=== PATIENT | female | born 1985 | race American Indian/Alaskan Native ===

== ENCOUNTER 2023-03-10 09:10 | Observation (INO) | payer OTHER ==
[~2023-03-10] VITALS: Ht 165.1 cm; Wt 106.6 kg
--- OUTSIDE RECORDS SUMMARY | ~2023-03-10 | XMS | Continuity of Care Document ---
Demographics + + + | Address | [address] | | | [place] [address] | + + + | Preferred Language | Unknown | + + + | Marital Status | Never | + + + | Protestant Affiliation | Unknown | + + + | Race | or | + + + | Ethnic Group | Unknown | + + + Author + + + | Author | [facility] | + + + | Organization | [facility] | + + + | Address | [address] [facility] | | | [place] [address] | + + + | Phone | | + + + Care Team Providers + + + + | Care Fire Loss Prevention Engineer Name | Role | Phone | + + + + Unavailable | Unavailable | + + + + Allergies and Intolerances + + + + + + | date | description | facility | reaction | severity | + + + + + + | (no date) | hydrocodone | [facility] | (no reaction) | (no severity) | + + + + + + Encounters No information. Functional Status No information. Immunizations No information. Medications No information. Problems + + + + | date | description | facility | + + + + | 2023-02-03 14:56 | UNSPECIFIED ASTHMA, | [facility] | | | UNCOMPLICATED | | + + + + Procedures No information. Results/Labs No information. Social History No information. Vital Signs No information."
--- OUTSIDE RECORDS SUMMARY | ~2023-03-10 | XMS | Continuity of Care Document ---
Demographics + + + | Address | [address] | | | [place] [address] | + + + | Preferred Language | Unknown | + + + | Marital Status | Never | + + + | Mosque Affiliation | Unknown | + + + | Race | or | + + + | Ethnic Group | Unknown | + + + Author + + + | Author | [facility] | + + + | Organization | [facility] | + + + | Address | [address] [facility] | | | [place] [address] | + + + | Phone | | + + + Care Team Providers + + + + | Care Customer Service Representative Teacher Name | Role | Phone | + [...]
[~2023-03-10 09:10] MED LIST: DOXYCYCLINE HY100 MG PO; GUAIFENESIN AC473 ML PO; PROAIR RESPICL90 MCG IH
[2023-03-10] MEDS ORDERED: BUDESONIDE-FO10.2 GM INH (09:28)
[2023-03-10 09:37] LABS: BASOPHILS 0.3 % (0-2); EOSINOPHILS 0.9 % (0-6); HEMATOCRIT 40.8 % (35.0-50.0); HEMOGLOBIN 14.1 g/dL (12.0-18.0); LYMPHOCYTES 8.7 % (24-44); MCHC 34.5 g/dl (30-36); MONOCYTES 6.4 % (0-12); NEUTROPHILS 83.7 % (39-80); PLATELET COUNT 400 K/uL (140-440); RBC 5.03 M/ul (4.3-5.7); RDW 14.4 (10.5-15.0)
[2023-03-10 09:52] LABS: ALBUMIN/GLOBULIN RATIO 0.89 (1.1-2.4); ANION GAP 15.3 (7-21); BILIRUBIN, TOTAL 1.7 ng/dL (0.2-1.0); CREATININE, SERUM 0.7 mg/dL (0.55-1.02); POTASSIUM 4.3 mmol/L (3.5-5.1); PROTEIN, TOTAL 8.5 g/dL (6.4-8.2)
[2023-03-10 11:37] LABS: BILIRUBIN, URINE NEGATIVE (negative); BLOOD/HGB, URINE NEGATIVE (Negative); KETONE, URINE NEGATIVE (Negative); LEUK ESTERASE, URINE NEGATIVE (negative); NITRITE, URINE NEGATIVE (negative); PH, URINE 5.5 (5-7)
--- NOTE | 2023-03-10 12:56 | NUR ---
THIS RN DOWN TO ER TO BRING PT UP TO MED/SURG. BEDSIDE REPORT RECEIVED FROM SHELLY PANDYA. 2RN SKIN ASSESSMENT COMPLETE. 1307 IN MED/SURG ROOM. SHELLY VÁSQUEZ IN TO ASSIST WITH ADMISSION. VITALS COMPLETE. IV FLUSHES WNL. IV FLUIDS STARTED, SEE MAR. ASSESSMENT COMPLETE. LUNG SOUNDS CLEAR. BOWEL TONES ACTIVE. PT REPORTING PAIN/TENDERNESS IN RUQ WITH PALPATION. PT REPORTING PAIN 4/10 IN ABD. PRN PAIN MEDICATION ADMINISTERED, SEE MAR. ASSISTED PT WITH CALLING . PT DENIES ANY NEEDS AT THIS TIME. EDUCATED PT TRUST MANAGER ASSISTANT LIGHT USE AND TO CALL WHEN PT NEEDS TO GET OUT OF BED. PT VERBALIZES UNDERSTANDING.
[2023-03-10 13:09] VITALS: BP 123/64
--- NOTE | 2023-03-10 13:31 | NUR ---
CALLED DR. BANDA REGARDING PT FEELING NAUSEOUS. PER DR. BANDA ZOFRAN 4MG IV Q6 PRN. VERIFIDED WITH READBACK.
--- NOTE | 2023-03-10 13:47 | NUR ---
IN TO ROUND ON PT. PT DENIES NAUSEA AT THIS TIME. PT DENIES ANY OTHER NEEDS. CALL LIGHT IN REACH.
--- NOTE | 2023-03-10 14:50 | NUR ---
IN TO ROUND ON PT. PT STATES "IT IS HOT, AND I AM NAUSEOUS." PRN NAUSEA MEDICATION ADMINISTERED, SEE MAR. COOL RAG PROVIDED. EMESIS NOTED. PT REPORTING PAIN 08/14. PT DENIES PRN PAIN MEDICATION WHEN OFFERED. PT DENIES ANY OTHER NEEDS AT THIS TIME. CALL LIGHT IN REACH.
--- NOTE | 2023-03-10 15:39 | NUR ---
IN TO ANSWER CALL LIGHT. IV PUMP ALARMING, RESOLVED. PT DENIES ANY OTHER NEEDS AT THIS TIME. CALL LIGHT IN REACH.
--- NOTE | 2023-03-10 15:45 | NUR ---
IN TO GET CONSENT FORM SIGNED. PT DENIES QUESTIONS. PT ENCOURAGED TO ASK QUESTIONS IF PT DOES HAVE ANY. CONSENT FORM SIGNED. WILLIAM SR IN TO ASSIST PT WITH WIPE DOWN. NO OTHER NEEDS FROM THIS RN AT THIS TIME.
--- NOTE | 2023-03-10 16:00 | NUR ---
Spoke with pt. She initally was retching. she denies needs for me to call nurse. States she was just medicated. Pt having symptoms for last 4 days. She lives in a house with her children and . Few steps. NO issues getting in or out of the home. 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 She states spouse and children will help her as needed. She denies any needs. She works at [employer]. Plans to go home on dc with family. No issues for finances at this time.
--- NOTE | 2023-03-10 16:10 | NUR ---
IN TO ADMINISTER MEDICATION, SEE MAR. PT REQUESTING TO USE RESTROOM. SBA FROM BED TO RESTOOM. PT TAKES CONTACTS OUT. CONTACT CASE PROVIDED. PT AMBULATES BACK TO BED. SCDs IN PLACE. PT DENIES ANY OTHER NEEDS AT THIS TIME. CALL LIGHT IN REACH.
--- NOTE | 2023-03-10 16:20 | NUR ---
PATIENT WASHED HER FACE AND DID HER PERICARE. I HELPED HER DO HER SURIGAL WIPE DOWN. PUT SOCKS ON AND SCDS.
--- NOTE | 2023-03-10 17:12 | NUR ---
IN TO ROUND ON PT. PT LAYING IN BED AND ADDRESSES THIS RN WHEN ENTERING ROOM. PT REPORTING PAIN 2/10 IN RUQ. PT DENIES PRN PAIN MEDICATION WHEN OFFERED. PT DENIES NAUSEA AT THIS TIME. PT DENIES ANY OTHER NEEDS AT THIS TIME. CALL LIGHT IN REACH.
--- NOTE | 2023-03-10 17:26 | NUR ---
SURGERY HERE TO TAKE PT DOWN FOR PROCEDURE.
--- NOTE | 2023-03-10 20:41 | NUR ---
03/10/232040 Joi Serna 2019: PT ARRIVES TO PACU WITH EYES CLOSED ON 10L O2 VIA MASK, CHIN SUPPORT NEEDED. PT DOES NOT AROUSE WITH PAINFUL STIMULI. Mer KAY RN SECOND. Bambi MENDOZA CRNA AT BEDSIDE. 2029: PT FOGS MASK NICELY AND PT ABLE TO STATE NAME WITH VERBAL STIMULI. O2 REMOVED AT THIS TIME, PT ABLE TO MAINTAIN SATS GREATER THAN 90% ON RA. 2039: PT O2 DECREASES TO 88% AND 3L VIA NC PLACED, PT ABLE TO MAINTAIN SATS 94%. DR. BANDA IN PACU AT THIS TIME.
[2023-03-10 21:12] VITALS: BP 130/76
--- NOTE | 2023-03-10 21:29 | NUR ---
PT ARRIVED BACK TO ROOM FROM THE PACU. REPORT RECEIVED AT BEDSIDE FROM HUMAN RESOURCES MANAGER. PT ASSESSED. 4 LAP SITES NOTED, CDI. EARL DRAIN NOTED TO RLQ. SEROSANGUINEOUS FLUID NOTED. VSS. 3L NC, C.POX APPLIED. PT SATING WELL. PT DENIES ANY PAIN AT THIS TIME. MEDICATIONS GIVEN PER ORDER. SAFETY PRECAUTIONS MAINTAINED. CALL LIGHT WITHIN REACH. WILL CONTINUE TO MONITOR.
[2023-03-10 22:30] VITALS: BP 142/84
[2023-03-10 23:25] VITALS: BP 133/76
[2023-03-11] VITALS (8 sets, daily range): BP systolic 122–144; BP diastolic 57–83
[2023-03-11 05:22] LABS: BASOPHILS 0.1 % (0-2); HEMATOCRIT 34.4 % (35.0-50.0); HEMOGLOBIN 11.6 g/dL (12.0-18.0); LYMPHOCYTES 5.6 % (24-44); MCH 27.7 (27-36); MCHC 33.5 g/dl (30-36); MCV 82.5 fl (81-99); MONOCYTES 7.6 % (0-12); NEUTROPHILS 86.7 % (39-80); PLATELET COUNT 330 K/uL (140-440); RBC 4.17 M/ul (4.3-5.7); RDW 14.4 (10.5-15.0)
[2023-03-11 05:36] LABS: ALBUMIN/GLOBULIN RATIO 0.73 (1.1-2.4); BUN/CREATININE RATIO 10.29 (6.0-28.6); CALCIUM 8.2 mg/dL (8.5-10.1); CREATININE, SERUM 0.68 mg/dL (0.55-1.02); PROTEIN, TOTAL 7.1 g/dL (6.4-8.2)
--- NOTE | 2023-03-11 06:27 | NUR ---
PT RESTED WELL DURING THE SHIFT. PT REFUSED ANY PAIN MEDICATION. PT WAS ABLE TO AMBULATE TO BATHROOM WITH SBA, GOOD OUTPUT NOTED. EARL DRAIN DRAINING WELL, WITH A TOTAL OF 70ML OUTPUT NOTED. VSS. PT NOW ON RA, SATING WELL. SCD'S ON THROUHGOUT SHIFT. SAFETY PRECAUTIONS MAINTAINED. CALL LIGHT WITHIN REACH. WILL CONTINUE TO MONITOR.
--- NOTE | 2023-03-11 07:02 | NUR ---
REPORT RECEIVED FROM SHELLY BLOCK. PT RESTING IN BED SEMI-FOWLERS. EYES CLOSED. RR EVEN AND UNLABORED. NO NEEDS IDENTIFIED AT THIS TIME. CALL LIGHT IN REACH.
--- NOTE | 2023-03-11 08:58 | NUR ---
IN TO ADMINISTER MEDICATIONS, SEE MAR. PT REQUESTING TOILETING, SBA FROM BED TO RESTROOM, PT PUTS CONTACTS IN BY SELF. SBA BACK TO BED. ASSESSMENT COMPLETE. LUNG SOUNDS CLEAR. BOWEL TONES ACTIVE. PT REPORTS TENDERNESS WITH ABD PALPATION TO LUQ AND MID ABD. 4 LAP SITE DRESSINGS D/I WITH SCANT AMOUNT OF DRAINAGE NOTED. EARL DRESSING REMOVED DRESSING NOTED TO BE SATURATED WITH SANGUINEOUS DRAINAGE. NEW DRAIN SPONGE AND ABD PAD PLACED, SECURED WITH FOAM TAPE. EARL DRAINAGE SANGUINEOU AND EMPTIED 25. PT DENIES ANY OTHER NEEDS AT THIS TIME. CALL LIGHT IN REACH.
--- NOTE | 2023-03-11 10:00 | NUR ---
Spoke with Trisha. She is smiling and states she feels so much better. She denies needs and plans on dc to home when cleared medically.
--- NOTE | 2023-03-11 10:12 | NUR ---
IN TO ROUND ON PT. PT UP IN BED. PT REQUESTING WATER, WATER PROVIDED. PT DENIES ANY OTHER NEEDS AT THIS TIME. CALL LIGHT IN REACH.
--- NOTE | 2023-03-11 10:50 | NUR ---
PT IN GOOD SPIRITS. CONSENTED TO PRAYER. PRAYED FOR HEALING AND ONGOING BLESSING.
--- NOTE | 2023-03-11 11:21 | NUR ---
IN TO AMBULATE WITH PT. PT AGREEABLE. A SBA PT AMBULATES CARDENAS X1 LAP. PT REPORTS FEELING DIZZY AND REQUESTING TO SIT. WHEELCHAIR PROVIDED FOR PT TO SIT DOWN. PT WHEELED BACK TO ROOM. PT BACK IN BED. PT REPORTING FEELING NAUSEOUS, PRN NAUSEA MEDICATION ADMINISTERED, SEE MAR. ICE PACK PROVIDED. PT RESTINGIN BED WITH EYES CLOSED. RR EVEN AND UNLABORED. PT RESPONDS WHEN ADDRESSED. PT DENIES ANY OTHER NEEDS AT THIS TIME. CALL LIGHT IN REACH.
--- NOTE | 2023-03-11 12:16 | NUR ---
IN TO ROUND ON PT. PT UP IN BED EATING LUNCH. PT DENIES ANY NEEDS AT THIS TIME. CALL LIGHT IN REACH.
--- NOTE | 2023-03-11 12:30 | NUR ---
PATIENT AMBULATING CARDENAS WITH RN
[2023-03-11] MEDS ORDERED: FLUTICASONE PRO16 GM NAS (13:29)
[2023-03-11] MEDS ORDERED: AZELASTINE137 MCG/0. NAS (13:32)
[2023-03-11] MEDS ORDERED: VITAMIN D350 MCG PO (13:34)
[2023-03-11] MEDS ORDERED: OLOPATADINE HC2.5 ML OU (13:35)
--- NOTE | 2023-03-11 13:35 | NUR ---
MED REC COMPLETE
--- NOTE | 2023-03-11 14:11 | NUR ---
PATIENT BACK TO ROOM AFTER AMBULATING CARDENAS WITH RN. VITALS AND I&OS CHARTED. PATIENT ASKING FOR PAIN MEDS, SHELLY TORIBIO NOTIFIED.
--- NOTE | 2023-03-11 14:16 | NUR ---
IN PT REPORTING PAIN 5/10 TO ABD. PRN PAIN MEDICATION ADMINISTERED, SEE MAR. PT REPORTING FEELING NAUSEOUS, PRN NAUSEA MEDICATION ADMINISTERED, SEE MAR. ASSESSMENT COMPLETE. LUNG SOUNDS CLEAR. BOWEL TONES ACTIVE. PT ABD TENDER WITH PALPATION. PT REPORTS HAVING SOME FLATUS. DRESSING TO RUQ EARL DRAIN IN PLACE. SMALL AMOUNT OF DRAINAGE NOTED. 4 LAP SITE STERI STRIPS D/I. PT DENIES ANY OTHER NEEDS AT THIS TIME. CALL LIGHT IN REACH.
--- NOTE | 2023-03-11 15:03 | NUR ---
IN TO ANSWER CALL LIGHT. IV PUMP ALARMING. NEW BAG OF FLUIDS STARTED, SEE MAR. IV INFUSING WNL. PT REPORTING NO PAIN AT THIS TIME. PT DENIES ANY OTHER NEEDS AT THIS TIME. CALL LIGHT IN REACH.
--- NOTE | 2023-03-11 17:05 | NUR ---
IN TO ROUND ON PTBrian PAULSON RN IN TO LOOK AT EARL DRESSING. DRESSING NOTED TO BE SATURATED WITH SANGUENOUS DRAINAGE. DRESSING REMOVED. SITE CLEANED WITH NS AND PATTED DRY. DRAIN SPONGE PLACED AND SECURED WITH MEDIPORE TAPE.
--- NOTE | 2023-03-11 18:37 | NUR ---
ATTEMPTED TO CALL DR. BANDA TO UPDATE HIM ABOUT PTs DRESSING TO EARL NEEDING CHANGED OFTEN. DR. BANDA IN SURGERY AT THIS TIME.
--- NOTE | 2023-03-11 19:38 | NUR ---
REPORT RECEIVED FROM DAY SHIFT RN. PT RESTING IN BED. SAFETY PRECAUTIONS MAINTAINED. CALL LIGHT WITHIN REACH. WILL CONTINUE TO MONITOR.
--- NOTE | 2023-03-11 19:52 | NUR ---
JUST SPOKE IN PERSON WITH DR BANDA IN REGARDS TO THE PT'S EARL DRAIN SITE BLEEDING AND SATURATING DRESSING MULTIPLE TIMES THROUGHOUT DAY SHIFT AND PREVIOUS SORTING AND FOLDING SUPERVISOR. DR BANDA STATED TO JUST MONITOR SITE AND CONTINUE TO HOLD PRESSURE ON SITE. RN VERBALIZED UNDERSTANDING. WILL CONTINUE TO MONITOR.
--- NOTE | 2023-03-11 20:40 | NUR ---
PT ASSESSED AND MEDICATIONS GIVEN. EARL DRAIN SITE CONTINUES TO DRAIN BUT HAS SLOWED DOWN. PRESSURE APPLIED TO SITE. VSS. IVF INFUAING PER ORDER. SCD'S APPLIED. SAFETY PRECAUTIONS MAINTAINED. CALL LIGHT WITHIN REACH. WILL CONTINUE TO MONITOR.
--- NOTE | 2023-03-12 00:17 | NUR ---
Patient called for assistance to restroom. The nurse looked at her EARL and was a second standby. Patient sat up in bed ok but took a little longer standing up from bed. Once patient stood up, she walked slow and steady with the IV pole. Patient is back to bed, SCDs are attached, and call light is within reach. One request from patient was to turn the temperature in the room down because she said it was too warm.
[2023-03-12 05:10] VITALS: BP 139/77
--- NOTE | 2023-03-12 06:10 | NUR ---
PT RESTED WELL DURING THE SHIFT. IVF INFUSING PER ORDER. PT VOIDING WELL WITH GOOD OUTPUT NOTED. TORADOL GIVEN ONCE FOR PAIN. EARL DRAIN SITE NOTED TO HAVE LESS DRAINAGE DURING SHIFT. EARL DRAIN OUTPUT 20ML FOR SHIFT. VSS. SAFETY PRECAUTIONS MAINTAINED. CALL LIGHT WITHIN REACH. WILL CONTINUE TO MONITOR.
--- NOTE | 2023-03-12 07:00 | NUR ---
BEDSIDE HANDOFF REPORT RECEIVED FROM ZINC PLATER RN. PT SLEEPING, RESPIRATIONS EVEN AND UNLABORED. IV FLUIDS INFUSING AT 85 ML/HR. PT LEFT UNDISTURBED.
--- NOTE | 2023-03-12 08:54 | NUR ---
PER AM MEETING PATIENT TO POSSIBLY DISCHARGE TODAY. NO CASE MANAGEMENT NEEDS NOTED AT THIS TIME.
--- NOTE | 2023-03-12 09:00 | NUR ---
PT SITTING IN BED, EATING BREAKFATS. PT ALERT AND ORIENTED. PT ON ROOM AIR, LUNG SOUNDS CLEAR, DENIES SOB. BOWEL TONES ACTIVE, DENIES NAUSEA, TOLERATING REGULAR DIET. LAP SITES X4 WITH STERISTRIPS, WITHOUT DRAINGE. RLQ EARL DRAIN WITH OLD DRAINAGE TO DRESSING, SEROSANGUINOUS DRAINAGE IN BULB. CMS INTACT, WITHOUT EDEMA, SCDS IN PLACE. IV FLUIDS INFUSING AT 85ML/HR. DISCUSSED PLAN OF CARE FOR THE DAY. PT DENIES OTHER NEEDS AT THIS TIME.
[2023-03-12 09:16] VITALS: BP 138/79
--- NOTE | 2023-03-12 10:30 | NUR ---
EXERCISED MINISTRY OF PRESENCE PT TALKED OF ANTICIPITED RETURN HOME. PT CONSENTED TO PRAYER. PRAYED PRAYER OF GRATITUDE AND BLESSING.
[2023-03-12 10:31] LABS: ALBUMIN 2.7 g/dL (3.4-5.0); ALBUMIN/GLOBULIN RATIO 0.66 (1.1-2.4); ANION GAP 13.7 (7-21); BUN/CREATININE RATIO 13.23 (6.0-28.6); CREATININE, SERUM 0.68 mg/dL (0.55-1.02); POTASSIUM 3.7 mmol/L (3.5-5.1); PROTEIN, TOTAL 6.8 g/dL (6.4-8.2)
[2023-03-12] MEDS ORDERED: IBUPROFEN600 MG PO (12:20)
[2023-03-12] MEDS ORDERED: PERCOCET 7.5-31 EACH PO (12:22)
[2023-03-12] MEDS ORDERED: TYLENOL EXTRA500 MG PO (12:22)
--- NOTE | 2023-03-12 13:30 | NUR ---
DISCHARGE INSTRUCTIONS REVIEWED WITH PT, IV CATH REMOVED, TIP INTACT. PT GETTING DRESSED AND CALLING FOR A RIDE.
[2023-03-12 13:36] VITALS: BP 134/81
--- NOTE | 2023-03-13 10:44 | HP ---
[facility] [address], [place] [address] Signed ADMISSION DATE: 03/10/2023 REASON FOR ADMISSION: Acute calculous cholecystitis. HISTORY OF PRESENT ILLNESS: This moderately obese 38-year-old [place] woman presented to [facility] with four days of increasing abdominal pain, mostly in the upper abdomen. She was recognized as likely having acute cholecystitis and was directed to the emergency room where she was evaluated at 10:[address] Rodrigez. It was affirmed that she has had at least four days of abdominal pain in the mid upper abdomen. Evaluation included lab studies, clinical examination and so on, as well as a CT scan. The CT scan did show gallstones with findings suggestive of acute cholecystitis and mild common duct dilation at 11 mm. 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 The patient since admission has had protracted and persistent vomiting and nausea. Her lab evaluation showed elevated white count of 18.6. Liver enzymes were normal. Bilirubin somewhat elevated at 1.7. PAST MEDICAL HISTORY: Negative for intra-abdominal operations. She does not smoke nor has she in the past. Her last menstrual period was in February. A beta-HCG was found to be negative. She has allergy to hydrocodone causing shortness of breath. She has taken an inhaler in the past for asthma type symptoms. SOCIAL HISTORY: She is . She has two teenaged sons. 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 REVIEW OF SYSTEMS: She denies any shortness of breath or chest pain. She has had no dysphagia or dysuria. Denies any hematemesis or blood per rectum. PHYSICAL EXAMINATION: GENERAL: This is an [place] woman who has a BMI of 39.1. VITAL SIGNS: Show a temperature of 98, pulse of 82, blood pressure 123/64, O2 saturation 100% on room air. HEENT: Mucous membranes are reasonably moist. Trachea is midline. The patient looks Electronically Signed By: VERO BANDA MD 03/13/23 1044 PATIENT NAME: DEE HOLLINS HISTORY AND PHYSICAL DATE OF : 83 REPORT #: [id number] PHYSICIAN: VERO BANDA MD PCP: KENNETH CHAND MD REPORT IS CONFIDENTIAL AND NOT TO BE RELEASED WITHOUT AUTHORIZATION [facility] [address], [place] [address] Signed quite uncomfortable and definitely so with her nausea. CHEST: Shows mild inspiratory wheeze. ABDOMEN: Obese, but soft. There is marked tenderness in the epigastric and right subcostal area. There is no ascites. I detect no palpable mass. EXTREMITIES: Show no clubbing, cyanosis, or edema. ASSESSMENT: The patient has acute calculous cholecystitis based on CT scan and clinical findings. She is markedly troubled by nausea and vomiting at this time. She is admitted and has been given Zosyn antibiotic to begin with and needs continued fluid resuscitation, maintenance of n.p.o. status and ultimately cholecystectomy. I discussed with her briefly the pathophysiology of her problem and recommendation of treatment to include cholecystectomy, preferably by laparoscopic approach. The risk of bleeding, infection, bile duct injury, need for open procedure, need for open common duct exploration or laparoscopic common duct exploration were all reviewed in detail. She understand and wished to proceed. PLAN: We will attempt to stabilize her situation enough to allow for cholecystectomy without untoward delay. She may require operation today. MD PARAM Graham/KASSY /[id number] cc: Dr. Vero Rodrigez Copies: ~ Electronically Signed By: VERO BANDA MD 03/13/23 1044 PATIENT NAME: DEE HOLLINS HISTORY AND PHYSICAL DATE OF : 83 REPORT #: [id number] PHYSICIAN: VERO BANDA MD PCP: KENNETH CHAND MD REPORT IS CONFIDENTIAL AND NOT TO BE RELEASED WITHOUT AUTHORIZATION
--- NOTE | 2023-03-14 14:16 | DS ---
[facility] [address] [place], [place] [address] Signed ADMISSION DATE: 03/10/2023 DISCHARGE DATE: 03/12/2023 REASON FOR ADMISSION: This 38-year-old obese [place] woman presented to [facility] with four days of increasing abdominal pain, mostly in the upper abdomen. She was referred to the emergency room, was evaluated by Dr. Rodrigez at approximately 10:28 a.m. and was affirmed to have findings suggestive of acute cholecystitis. A CT scan was performed, which showed gallstones and findings of acute cholecystitis and common duct dilation at 11 mm. 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 Her white count was elevated to 18.6. Liver enzymes were normal. Bilirubin slightly elevated at 1.7. She is admitted for further evaluation and care. PERTINENT PHYSICAL EXAMINATION: GENERAL/VITAL SIGNS: Showed a pleasant [place] woman, who is with BMI of 39.1, temperature 98, pulse 82, blood pressure 122/64, and O2 saturation 100% on room air. ABDOMEN: Not distended, but markedly tender in epigastric and right subcostal area. There is no ascites. No mass. LABORATORY DATA: Lab studies were as previously noted. HOSPITAL COURSE: She was given intravenous antibiotic, Zosyn initially, made n.p.o. and given intravenous fluid resuscitation and IV antibiotics ongoing. On March 10, 2023, she underwent laparoscopy, where she was found to have severe acute calculus cholecystitis with a large 3 cm gallstone in the lower segment of the gallbladder. The operation was prolonged, complicated, and difficult. The dilated common duct prompted a transcystic laparoscopic common duct exploration with wire and balloon. The operation was prolonged, complicated, and difficult. 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 A drain was left in place. She postoperatively was doing well. Her bilirubin was slightly elevated to 2.0. The following day, she was feeling much better. Bilirubin and liver enzymes were otherwise normal and the drain was able to be removed. She is discharged home in good condition, much improved and feeling quite well at this time. Electronically Signed By: VERO BANDA MD 03/14/23 1416 PATIENT NAME: DEE HOLLINS DISCHARGE SUMMARY DATE OF : [birth year] REPORT #: [id number] PHYSICIAN: VERO BANDA MD PCP: KENNETH CHAND MD REPORT IS CONFIDENTIAL AND NOT TO BE RELEASED WITHOUT AUTHORIZATION [facility] [address] [place], [place] [address] Signed DISCHARGE MEDICATIONS: Include: 1. Ibuprofen 600 mg p.o. q.6 hours p.r.n. pain, #60. 2. Tylenol Extra Strength 500 mg two tablets p.o. q.6 hours as needed for pain, #30. 3. Percocet 7.5/325 one to two p.o. q.6 hours p.r.n. pain, #6. She will resume her usual medications, which include: 1. Budesonide-formoterol fumarate inhalation one inhalation as needed for wheezing. 2. Fluticasone spray two sprays at bedtime for allergy relief. 3. Azelastine spray pump two sprays nasal every day as needed. 4. Vitamin D3 50 mcg capsule p.o. daily. 5. Olopatadine 0.2% drop in each eye as needed for allergy. DISCHARGE DIAGNOSES: 1. 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 2. Obesity. FOLLOWUP PLAN: We will call on Wednesday to see us back in the office in a month or so. She is advised to lift no more than 20 pounds for the next two weeks. A note will be written for her work in this regard as well. Vero Banda MD /MICHAELL /[id number] cc: [facility] Dr. Rodrigez [facility] Electronically Signed By: VERO BANDA MD 03/14/23 1416 PATIENT NAME: DEE HOLLINS DISCHARGE SUMMARY DATE OF : 83 REPORT #: [id number] PHYSICIAN: VERO BANDA MD PCP: KENNETH CHAND MD REPORT IS CONFIDENTIAL AND NOT TO BE RELEASED WITHOUT AUTHORIZATION [facility] [address] [place], [place] [address] Signed Copies: [facility] ~ Electronically Signed By: VERO BANDA MD 03/14/23 1416 PATIENT NAME: DEE HOLLINS DISCHARGE SUMMARY DATE OF : 83 REPORT #: [id number] PHYSICIAN: VERO BANDA MD PCP: KENNETH CHAND MD REPORT IS CONFIDENTIAL AND NOT TO BE RELEASED WITHOUT AUTHORIZATION
--- NOTE | 2023-03-14 14:16 | OR ---
[facility] [address], [place] [address] Signed DATE OF OPERATION: 03/10/2023 SURGEON: Vero Banda MD PREOPERATIVE DIAGNOSIS: Acute calculus cholecystitis and dilated common bile duct. POSTOPERATIVE DIAGNOSIS: 1. Severe acute calculous cholecystitis, single large gallstone (3 cm). 2. 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 PROCEDURES: 1. Laparoscopic cholecystectomy with laparoscopic transcystic duct exploration with wire and balloon; prolonged, complicated, difficult. 2. Surgeon-directed fluoroscopy. ANESTHESIA: General endotracheal, Vero Martinez CRNA and local 10 mL of 0.25% Marcaine with epinephrine. INDICATIONS: This obese 38-year-old woman, who has had at least four days of increasing abdominal pain including tenderness in the right upper abdomen on evaluation through the emergency room. A CT scan was performed through the emergency room, which showed a gallstone, inflammatory changes of the gallbladder and a dilated common duct. There was no visible stone within the duct. She has been fluid resuscitated given intravenous antibiotics and so forth and given the acuity of her problem and persistent unrelenting nausea and vomiting, cholecystectomy is offered today. She understands the risk of operation including but not limited to bleeding, infection, bile duct injury, need for open procedure, and need for common duct exploration, understand that she wished to proceed. FINDINGS: Indeed the gallbladder was quite tense and markedly inflamed. The liver had fatty infiltration. The gallbladder required decompression, which showed clear bile indicative of outlet obstruction of the gallbladder of course. Dissection was safely accomplished, which showed essentially a bilobed gallbladder with a dense stone impacted in the infundibulum, which likely was impacting on the common bile duct during the course of cholangiogram. Antegrade flow in the cystic duct into the duodenum was noted, but difficulty in retrograde filling of the proximal biliary tree. A transcystic duct Electronically Signed By: VERO BANDA MD 03/14/23 1416 PATIENT NAME: DEE HOLLINS OPERATIVE REPORT DATE OF : 83 REPORT #: [id number] PHYSICIAN: VERO BANDA MD PCP: KENNETH CHAND MD REPORT IS CONFIDENTIAL AND NOT TO BE RELEASED WITHOUT AUTHORIZATION [facility] [address], [place] [address] Signed exploration was undertaken with wire and balloon dilator. There were no other stones within the biliary tree. 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 Specifically, proximal biliary obstruction related to extrinsic compression by gallstone within the infundibulum. Cholecystectomy was performed completely and drain was placed. The operation was prolonged, complicated, and difficult lasting four times longer than usual. DESCRIPTION OF PROCEDURE: The patient was brought to the operating room, given general endotracheal anesthetic. Preoperative antibiotic Ancef was given. Sequential compression device stockings were in place. After satisfactory general endotracheal anesthesia, the abdomen was prepared with a Betadine solution and her chlorhexidine solution draped sterilely. An infraumbilical incision was made and using an open Shmuel cannula technique pneumoperitoneum was achieved to a level of 14 mmHg of carbon dioxide gas. Intra-abdominal inspection showed no sign of ascites or carcinomatosis. The gallbladder was visualized and quite inflamed and dilated. A blunt liver edge was noted. Three additional trocars were placed in usual configuration in the subxiphoid, right midclavicular, and right anterior axillary line. The gallbladder was so tensely distended and inflamed, it required needle decompression. The gallbladder contents were clear, bile with no bile staining at all. The puncture site was grasped and the gallbladder elevated, and using blunt dissection the gallbladder was better defined. Quite marked inflammation of the distal third of the gallbladder was noted down to the infundibular area. Dissection was begun high in the gallbladder showing a very thick cocoon of fatty material and peritoneum. Small clips were applied as necessary for multiple vascular channels. It became clear that the dominant problem was lower on the gallbladder and the gallbladder appearance was that of a bilobed gallbladder, no doubt accounted for by the impacted stone in the neck of the gallbladder. Dissection was begun more medially, ultimately identifying well the cystic duct and the large impacting stone. Cystic arterial branches were divided after application of clips and an enlarged pericholecystic lymph node was noted as well. Once the cystic duct was fully defined, the clip was applied across gallbladder cystic duct junction. A transverse choledochotomy was made in the cystic duct, Egress of clear bile was noted. Using the Guadalupe type cholangiocatheter, intraoperative cholangiography was undertaken showing free flow of contrast into the common bile duct proper. It was rather dilated except in the distal portion where it was rather narrow. At first, there was some concern there may be a stone distally. Notably, retrograde flow into the more proximal biliary tree was not forthcoming. Additional views were taken still showing no real retrograde flow. Various maneuvers were made with the cholangiocatheter syringes and so forth to provide for retrograde visualization of proximal biliary tree. Electronically Signed By: VERO BANDA MD 03/14/23 1416 PATIENT NAME: DEE HOLLINS OPERATIVE REPORT DATE OF : 83 REPORT #: [id number] PHYSICIAN: VERO BANDA MD PCP: KENNTEH CHAND MD REPORT IS CONFIDENTIAL AND NOT TO BE RELEASED WITHOUT AUTHORIZATION [facility] [address], [place] [address] Signed Given the rather slow emptying of the dilated common bile duct and although emptying into the duodenum, the transcystic duct distal common bile duct dilation and irrigation was deemed advisable. An additional taut trocar was placed in the upper abdomen allowing for insinuation of a flexible wire into the cystic duct and with various manipulations across the ampulla into the duodenum. Using an ERCP balloon catheter, the catheter was passed across and down the wire positioning the markers across what would be the ampulla. Attempts at dilation were rather unsuccessful. Various attempts were made to do so; however. The catheter and wire assembly were removed and repeat cholangiogram was undertaken at this time showing retrograde filling of the proximal biliary tree, which was additionally also dilated. Catheter was removed. The cystic duct was triply clipped. The cystic duct was transected and the gallbladder was dissected in a retrograde fashion. Notable was the large impacted stone at the infundibulum and with further dissection, it was quite clear that it extended more medially than usual and likely the previous findings were related to Mirizzi syndrome. Meticulous care was taken to dissect the gallbladder more proximally. Once excised, it was placed in an Endobag. The gallbladder was then extracted through the infraumbilical port site. The infraumbilical port site was of inadequate size, and therefore was incised inferiorly to allow for extraction of the Endobag and the gallbladder and large stone. The gallbladder was opened on the back table by the circulating nurse and found to be quite wedged into the infundibulum, was oblong, smooth and unifocal and measured about 3 cm in size. Irrigation was undertaken in the subhepatic space. There was no sign of bleeding or bile leak. Given this extent of dissection, a 7 mm flat Rober drain was placed in the subhepatic space. Selwyn powdered hemostatic agent was also insufflated into the area for hemostasis. Excess irrigation fluid was suctioned free. The trocars removed under direct visualization showing no sign of bleeding. The infraumbilical fascial incision was reapproximated with running 0-PDS suture, and additionally supported by interrupted 0-Vicryl suture. A 10 mL of 0.25% Marcaine with epinephrine injected locally. The skin was then closed with interrupted 3-0 Vicryl. Steri-Strips were applied. The patient was ultimately extubated and transferred to the recovery room in good condition, having suffered no complication. Sponge, needle, and instrument counts reported as correct x3. The operation was prolonged, complicated, and difficult lasting four times longer than usual. Vero Banda MD /MODL Electronically Signed By: VERO BANDA MD 03/14/23 1416 PATIENT NAME: DEE HOLLINS OPERATIVE REPORT DATE OF : 83 REPORT #: [id number] PHYSICIAN: VERO BANDA MD PCP: KENNETH CHAND MD REPORT IS CONFIDENTIAL AND NOT TO BE RELEASED WITHOUT AUTHORIZATION [address] [address] Signed /[id number] cc: Dr. Vero Rodrigez [facility] Copies: ~ Electronically Signed By: VERO BANDA MD 03/14/23 1416 PATIENT NAME: DEE HOLLINS OPERATIVE REPORT DATE OF : 83 REPORT #: [id number] PHYSICIAN: VERO BANDA MD PCP: KENNETH CHAND MD REPORT IS CONFIDENTIAL AND NOT TO BE RELEASED WITHOUT AUTHORIZATION
--- NOTE | 2023-03-16 11:44 | PATH ---
[facility] [address] [place], [place] [address] Signed SPECIMEN(S): A GALLBLADDER AND STONE SPECIMEN SOURCE: A. GALLBLADDER AND STONE CLINICAL HISTORY: Cholecystitis. FINAL PATHOLOGIC DIAGNOSIS: Gallbladder and stone: - Acute calculous cholecystitis. - Focal mucosal necrosis. JVR:[facility] MICROSCOPIC EXAMINATION: Histologic sections of all submitted blocks are examined by light microscopy. These findings, together with the gross examination, support the pathologic diagnosis. GROSS DESCRIPTION: The specimen, labeled and designated "Cristina A" and designated on the requisition "gallbladder and stone," is received in formalin and consists of Specimen: Previously opened gallbladder. Dimensions: 13.0 x 4.0 x 3.5 cm. Serosa: Red-brown and roughened with adherent white-dent exudate. Cystic Duct: Obstruction cannot be determined, specimen received open, margin inked black and shaved. Calculi: One yellow-dent ovoid calculus (3.6 x 2.4 x 2.0 cm). Mucosa: Dent-brown trabeculated red-brown and velvety with yellow flecking. Wall thickness: 0.8 cm. Lymph node: No pericystic lymph nodes are grossly identified. Additional: None. [employer] sections are submitted in (A1). AC (under the direct supervision of a pathologist) The Gross Description was prepared using a voice recognition system. The report was reviewed for accuracy; however, sound-alike word errors, addition and/or deletions may occur. If there is any question about this report, please contact Client Services. PERFORMING LABORATORY: PATIENT NAME: DEE HOLLINS PATHOLOGY DATE OF : 83 REPORT #: [id number] PHYSICIAN: IAN RODRIGUEZ PCP: KENNETH CHAND MD REPORT IS CONFIDENTIAL AND NOT TO BE RELEASED WITHOUT AUTHORIZATION [address], [place] [address] Signed Technical component was performed by [facility], [address] [place] [address] (CLIA# [id number]). [facility], [address] [place] [id number] (CLIA#: [id number]). Diagnostician: Cholo Alvarado MD Pathologist Electronically Signed 03/16/2023 Copies: ~ PATIENT NAME: DEE HOLLINS PATHOLOGY DATE OF : [birth year] REPORT #: [id number] PHYSICIAN: IAN RODRIGUEZ PCP: KENNETH CHAND MD REPORT IS CONFIDENTIAL AND NOT TO BE RELEASED WITHOUT AUTHORIZATION
== END 2023-03-12 14:40 | disposition home or self-care (01) ==
LOC: ED 09:10 → MS 09:12
PROVIDERS: Emergency Medicine; ADMIT Surgery; ATTEND Surgery
PROC: BF502Z0 Other Imaging of Bile Ducts using Fluorescing Agent, Intraoperative (ICD-10-PCS; 2023-03-10)
PROC: 0FT44ZZ Resection of Gallbladder, Percutaneous Endoscopic Approach (ICD-10-PCS; principal; 2023-03-10 17:45)
DX: K80.01 Calculus of gallbladder with acute cholecystitis with obstruction (principal); J45.909 Unspecified asthma, uncomplicated; E66.9 Obesity, unspecified; Z68.39 Body mass index [BMI] 39.0-39.9, adult; Z88.5 Allergy status to narcotic agent; Z79.899 Other long term (current) drug therapy
CPT/HCPCS: 00790; 36415; 74177; 74300; 80053; 81003; 83690; 84703; 85025; 88304; 94640; 96372; 96375; 96376; 99285-25; C1726; C1769; G0008; G0378; J0131; J0330; J0690; J0780; J1100; J1170; J1644; J1885; J2250; J2405; J2543; J2704; J2765; J3010; J7030; J7121; Q9967